=== PATIENT | female | born 1940 | race Caucasian/White ===

== ENCOUNTER 2017-12-20 09:31 | Outpatient (CLI) | payer OTHER ==
[2017-12-20] MEDS ORDERED: LIDOCAINE 1%, 20 ML MDV 20 ML ONE (12:02)
== END 2017-12-20 19:03 | disposition home or self-care (01) ==
LOC: SCT 09:31
PROVIDERS: ATTEND Specialist
DX: C34.91 Malignant neoplasm of unspecified part of right bronchus or lung (principal)
CPT/HCPCS: 32405; 77012; 88307; 88341; 88342; 88361; J2001; 88305